=== PATIENT | female | born 1955 | race Caucasian/White ===

== ENCOUNTER → 2016-04-21 | Outpatient (CLI) | payer OTHER ==
[~2016-04-21] MED LIST: GADOBUTROL 10 ML VIAL IVP ONE
--- NOTE | 2016-04-21 23:31 | MR ---
MRI of the Abdomen (Without and With Contrast) History: 60 year old with metastatic breast cancer. Technique: Precontrast 2D FIESTA axial, FSE T2 breathhold axial and coronal, kt-wve-gfr-of-phase axi al imaging, and T1 LAVA fat-suppressed imaging. Pre- and multiphase postcontrast axial T1 fat-suppre ssed images after the uneventful injection of 7 mL Gadavist. Comparison: CT abdomen February 04, 2016 from [facility], CT chest January 13, 2016 , PET/CT July 17, 2015 from [facility]. Findings: There are no pleural or pericardial effusions. There is no change in size of a 1.4- x 1.2-cm T2 hyperintense enhancing nodule in the anterior segmen t right hepatic lobe, with progressive enhancement on delayed series. No other liver lesions are anny ntified. The gallbladder, spleen, pancreas, adrenals, and kidneys are normal. The visualized colon and small bowel are normal caliber. The aorta is normal caliber. The IVC, hepatic, portal, splenic, and superior mesenteric veins are patent. No pathologically enlarged lymph nodes are identified. D egenerative change is present in the lumbar spine. No aggressive osseous lesions are identified. Impression: Stable indeterminate hepatic lesion since February 2016, which had previously increased in size making it suspicious for metastasis. E:jayden
== END ==
LOC: FIMAGING 09:49
PROVIDERS: ATTEND Internal Medicine Hematology & Oncology
DX: K76.9 Liver disease, unspecified (principal); Z12.89 Encounter for screening for malignant neoplasm of other sites; C50.919 Malignant neoplasm of unspecified site of unspecified female breast
CPT/HCPCS: A9585

== ENCOUNTER → 2016-11-02 | Outpatient (CLI) | payer OTHER ==
[~2016-11-02] MED LIST changes: -GADOBUTROL 10 ML VIAL IVP ONE; +IOPAMIDOL (ISOVUE 370) 100 ML BTL IV ONE
== END ==
LOC: FIMAGING 14:34
PROVIDERS: ATTEND Physician Assistant
DX: I82.611 Acute embolism and thrombosis of superficial veins of right upper extremity (principal); I26.99 Other pulmonary embolism without acute cor pulmonale; R59.0 Localized enlarged lymph nodes
CPT/HCPCS: Q9967

== ENCOUNTER → 2017-06-19 | Outpatient (CLI) | payer OTHER | LOC: FIMAGING 08:36 | PROVIDERS: ATTEND Internal Medicine Hematology & Oncology | DX: K21.9 Gastro-esophageal reflux disease without esophagitis (principal); Z85.3 Personal history of malignant neoplasm of breast ==

== ENCOUNTER → 2018-05-14 | Outpatient (CLI) | payer OTHER | LOC: FIMAGING 09:09 | PROVIDERS: ATTEND Internal Medicine Hematology & Oncology | DX: C50.112 Malignant neoplasm of central portion of left female breast (principal); M89.8X8 Other specified disorders of bone, other site | CPT/HCPCS: 78306; A9503 ==

== ENCOUNTER → 2018-06-13 | Outpatient (CLI) | payer OTHER | LOC: FIMAGING 08:16 | PROVIDERS: ATTEND Internal Medicine Hematology & Oncology | DX: M79.661 Pain in right lower leg (principal) ==

== ENCOUNTER → 2018-07-10 | Outpatient (CLI) | payer OTHER | LOC: FIMAGING 11:51 | PROVIDERS: ATTEND Nurse Practitioner | DX: R14.0 Abdominal distension (gaseous) (principal); R11.2 Nausea with vomiting, unspecified; Z85.3 Personal history of malignant neoplasm of breast ==

== ENCOUNTER → 2018-07-16 | Outpatient (CLI) | payer OTHER ==
[~2018-07-16] MED LIST changes: +GADOBUTROL 10 ML VIAL IVP ONE; -IOPAMIDOL (ISOVUE 370) 100 ML BTL IV ONE
== END ==
LOC: FIMAGING 08:11
PROVIDERS: ATTEND Internal Medicine Hematology & Oncology
DX: C79.51 Secondary malignant neoplasm of bone (principal); C50.919 Malignant neoplasm of unspecified site of unspecified female breast; K59.00 Constipation, unspecified
CPT/HCPCS: A9585

== ENCOUNTER 2018-07-26 05:28 | Inpatient (IN) | payer OTHER ==
[2018-07-26] MEDS ORDERED: LIDOCAINE 1% 2 ML INJ ID PRN (06:07)
[2018-07-26] MEDS ORDERED: LR 1,000 ML IV ONE (06:07)
[2018-07-26] MEDS ORDERED: BACITRACIN 50,000 UNITS/10 ML SYR IRR ONE (06:07)
[2018-07-26] MEDS ORDERED: BUPIVACAINE/EPI 0.25% 30 ML SDV ONE (06:07)
[2018-07-26] MEDS ORDERED: CHLORHEXIDINE GLUC HIBICLENS 118 ML BTL TP ONE (06:08)
[2018-07-26] MEDS ORDERED: THROMBIN (BOVINE) 5,000 UNIT VIAL TP ONE (06:08)
[2018-07-26 06:35] LABS: PLATELET COUNT 182 10^3/uL (150-400)
[2018-07-26] MEDS ORDERED: ceFAZolin 2 GM/DEXTROSE 100 ML IV ONE (06:46)
[2018-07-26] MEDS ORDERED: GABAPENTIN 300 MG CAP PO ONE (06:46)
[2018-07-26] MEDS ORDERED: ACETAMINOPHEN 500 MG TAB PO ONE (06:46)
[2018-07-26] MEDS ORDERED: morphINE SR 15 MG TAB PO ONE (06:46)
--- NOTE | 2018-07-26 06:50 | PDHPUP ---
History & Physical Update H&P update statement: This history and physical update is based on an assessment of the patient which was completed after admission or registration (within 24 hours), but prior to the surgery/procedure. H&P update: H&P reviewed & patient examined, no change in patient's condition since H&P completed
[2018-07-26] MEDS ORDERED: MIDAZOLAM 2 MG/2 ML VIAL IVP ONE (06:54)
--- NOTE | 2018-07-26 06:54 | PDANEPAE ---
ANE History of Present Illness CA mets to spine, for stabilization ANE Past Medical History - Cardiovascular History Hx Hypertension: No Hx Arrhythmias: No Hx Chest Pain: No Hx Coronary Artery / Peripheral Vascular Disease: No Hx CHF / Valvular Disease: No Hx Palpitations: No Cardiovascular History Comment: hx of DVT last one 12/2017 - Pulmonary History Hx COPD: No Hx Asthma/Reactive Airway Disease: Yes Hx Recent Upper Respiratory Infection: No Hx Oxygen in Use at Home: No Hx Sleep Apnea: No Sleep Apnea Screening Result - Last Documented: Negative Pulmonary History Comment: hx of asthma- no issues currently. current right lung ca mets - Neurologic History Hx Cerebrovascular Accident: No Hx Seizures: No Hx Dementia: No Neurologic History Comment: occ numbness and tingling to right leg if she moves a certain way - Endocrine History Hx Diabetes: No - Renal History Hx Renal Disorders: No - Liver History Hx Hepatic Disorders: Yes Hepatic History Comment: current liver mets - Neurological & Psychiatric Hx Hx Neurological and Psychiatric Disorders: No - Cancer History Hx Cancer: Yes Cancer History Comment: hx of left BREAST CA 08/2011 with mets to liver, and right lung- oral chemo daily. chemo with breast and bilateral mastectomy - Congenital Disorder History Hx Congenital Disorders: No - GI History Hx Gastrointestinal Disorders: Yes Gastrointestinal History Comment: gerd - Other Health History Other Health History: wears glasses - Chronic Pain History Chronic Pain: No - Surgical History Prior Surgeries: 12/2017 thromobsis removal. 01/30/15 excision of neuroma with Celine. 10/16/12 right knee resurfacing with Fito. 08/19/11 bilateral mastectomy, port placed and reconstruction with Joe. 08/05/11 left breast bx with Sandra. 77 VARICOSE VEINS L LEG. HYSTERECTOMY 1982. BLADDER SLING 1989. REMOVAL PORT. REVISION R BREAST 2012. REVISION R BREAST X 2013 ANE Review of Systems Review of Systems: - Exercise capacity METS (RN): 4 METS ANE Patient History - Allergies Allergies/Adverse Reactions: Sulfa (Sulfonamide Antibiotics) Allergy (Verified 07/25/18 09:19) HIVES, SWELLING - Home Medications Home Medications: Letrozole [Femara 2.5 mg (*)] 2.5 mg PO DAILY 12/05/17 [Last Taken 07/26/18] Pantoprazole Sodium [Protonix 40mg (*)] 40 mg PO DAILY 12/05/17 [Last Taken ] Dexamethasone [Decadron 4 MG (*)] 4 mg PO BID 07/25/18 [Last Taken 07/26/18] Rivaroxaban [Xarelto 10mg (*)] 20 mg PO DAILY 07/25/18 [Last Taken 07/22/18] Ascorbic Acid [Vitamin C 500 mg (*)] 500 mg PO DAILY 07/26/18 [Last Taken Unknown] Calcium Carbonate [Oyster Shell Calcium 500 mg (*)] 500 mg PO DAILY 07/26/18 [ Last Taken Unknown] Cholecalciferol Vit D3 [Vitamin D3 (*)] 1,000 units PO DAILY 07/26/18 [Last Taken Unknown] Multivitamins [Multivitamin (*)] 1 each PO DAILY 07/26/18 [Last Taken Unknown] Aurora-3 Fatty Acids [Fish Oil 1000 mg (*)] 1,000 mg PO DAILY 07/26/18 [Last Taken Unknown] - NPO status NPO Since - Liquids (Date): 07/26/18 NPO Since - Liquids (Time): 04:00 NPO Since - Solids (Date): 07/25/18 NPO Since - Solids (Time): 18:00 - Anes Hx Anes Hx: no prior problems - Smoking Hx Smoking Status: Never smoked - Family Anes Hx Family Hx Anesthesia Complications: YOUNGEST BROTHER CARDIAC ARREST AND REVIVED ANE Labs/Vital Signs - Labs Result Diagrams: 07/26/18 06:24 - Vital Signs Blood Pressure: 130/76 Heart Rate: 70 Respiratory Rate: 17 O2 Sat (%): 94 Height: 160.02 cm Weight: 80.286 kg ANE Physical Exam - Airway Mallampati Score: Class 2 Mouth exam: normal dental/mouth exam - Pulmonary Pulmonary: no respiratory distress - Cardiovascular Cardiovascular: regular rate and rhythym - ASA Status ASA Status: III ANE Anesthesia Plan Anesthesia Plan: general endotracheal anesthesia
[2018-07-26] MEDS ORDERED: MIDAZOLAM 2 MG/2 ML VIAL ONE (07:03)
[2018-07-26] MEDS ORDERED: SCOPOLAMINE HYDROBROMIDE 1 MG/3 DAYS PATCH TD ONE (07:03)
[2018-07-26] MEDS ORDERED: ROCURONIUM 50 MG/5 ML VIAL ONE (07:08)
[2018-07-26] MEDS ORDERED: LIDOCAINE 2% 5 ML SDV ONE (07:08)
[2018-07-26] MEDS ORDERED: REMIFENTANIL HCL 1 MG VIAL ONE ×2 (07:09→09:26)
[2018-07-26] MEDS ORDERED: PROPOFOL 200 MG/20 ML VIAL ONE (07:10)
[2018-07-26] MEDS ORDERED: fentaNYL 100 MCG/2 ML INJ ONE ×3 (07:10→11:31)
[2018-07-26] MEDS ORDERED: PROPOFOL/EMULSION 500 MG/50 ML BOTTLE IV ONE ×2 (07:10→09:26)
[2018-07-26] MEDS: SCOPOLAMINE HYDROBROMIDE 1 MG/3 DAYS PATCH TD SCH (07:19)
[2018-07-26] MEDS ORDERED: PROMETHAZINE HCL 25 MG/ML INJ IVP PRN (10:15)
[2018-07-26] MEDS ORDERED: NALOXONE HCL 0.4 MG/ML INJ IVP PRN (10:15)
[2018-07-26] MEDS ORDERED: ONDANSETRON 4 MG/2 ML VIAL IVP PRN ×2 (10:15→10:43)
[2018-07-26] MEDS ORDERED: LACTULOSE 20 GM/30 ML UDCUP PO PRN (10:43)
[2018-07-26] MEDS ORDERED: MAGNESIUM HYDROXIDE 30 ML UDCUP PO PRN (10:43)
[2018-07-26] MEDS ORDERED: ONDANSETRON DISINTEGRATING 4 MG TAB PO PRN (10:43)
[2018-07-26] MEDS ORDERED: BISACODYL 10 MG SUPP PR PRN (10:43)
[2018-07-26] MEDS ORDERED: diphenhydrAMINE 25 MG CAP PO PRN (10:43)
[2018-07-26] MEDS ORDERED: HYDROmorphONE/DILAUDID 1 MG/ML INJ IVP PRN (10:43)
[2018-07-26] MEDS ORDERED: NS 1,000 ML IV SCH (10:45)
--- NOTE | 2018-07-26 10:55 | POSTOPPROG ---
Post Op Note Date of Operation: 07/26/18 Surgeon: Sridhar Do Telephone Maintenance Mechanic: Regi Diggs Anesthesia: GET(General Endotracheal) Pre-op Diagnosis: T8 Spinal Tumor Post-op Diagnosis: same Procedure: T6-T10 PSF, T8-9 laminectomy for removal of T8 spinal tumor Inf/Abcess present in the surg proc area at time of surgery?: No Depth: Organ Space EBL: 100 Complications: none observed Drains: Antwan De La Vega (To full suction) SOAP Progress Note Assessment/Plan: Assessment: Plan: 07/26/18 10:51 S: Patient in PACU. Stable and still waking up from surgery. O: NAD, VSS Somnolent PERRL GARCIA x4 SILT Incision c/d/i-dressed JUSTINO X1 - to full suction A:62 yo female with known history of breast cancer sp T6-T10 PSF, T8-9 laminectomy for removal of T8 spinal tumor P: -Admit to ed/surg -Optimize pain management -Was on steroids prior to surgery for symptoms but these will need to be weaned off over the next 7 days -JUSTINO X 1 to full suction -Postop MRI and xrays tomorrow -No brace -May shower on POD #2 -Lovenox to start tomorrow, was on Xeralto in the past, may restart this in 5 days -PT.OT -Please call with any changes in neuro exam Objective: Vital Signs Temp Pulse Resp BP Pulse Ox 36.7 C 70 17 130/76 H 94 07/26/18 06:13 07/26/18 08:23 07/26/18 08:23 07/26/18 08:23 07/26/18 08:23 Laboratory Results 07/26/18 06:24
--- NOTE | 2018-07-26 10:57 | POSTANESTH ---
Post Anesthetic Evaluation Cardiovascular Status: Similar to Pre-Op Cond Respiratory Status: Similar to Pre-op Cond. Level of Consciousness/Mental Status: Alert and Oriented Pain Control: Adequate, Prn Tx Ordered Nausea/Vomiting Control: Adequate, Prn Tx Ordered Complications Possibly Related to Anesthesia: None Noted
[2018-07-26] MEDS: fentaNYL 100 MCG/2 ML INJ IVP PRN ×2 (11:33→11:41)
--- NOTE | 2018-07-26 11:33 | PDMN ---
Medical Necessity Medical necessity: Pt meets npt criteria per MD order and Neurosurgery GRG, Laminectomy for excision or evacuation of intraspinal lesion, MCR IP only list, 5 days. op: T6-10 PSF, T8-9 laminectomy for removal of T8 spinal tumor. 62 y/o w/hx breast ca, underwent bilat mastectomy and chemo tx since then, developed R flank and under R breast pain as well as some midline back pain, CT and MRI show T8 mass, admitted now for above surg and post-op care.
[2018-07-26] MEDS ORDERED: HYDROmorphONE/DILAUDID 1 MG/ML INJ ONE (11:53)
[2018-07-26] MEDS: HYDROmorphONE/DILAUDID 1 MG/ML INJ IVP PRN ×3 (11:54→12:34)
[2018-07-26] MEDS: ACETAMINOPHEN 500 MG TAB PO SCH ×2 (13:03→21:44)
[2018-07-26] MEDS: METHOCARBAMOL 750 MG TAB PO PRN ×2 (13:03→17:59)
[2018-07-26] MEDS: oxyCODONE IR 5 MG TAB PO PRN ×3 (13:04→21:45)
[2018-07-26] MEDS: ceFAZolin 2 GM/DEXTROSE 100 ML IV SCH ×2 (15:06→21:44)
--- NOTE | 2018-07-26 19:21 | GOP ---
[f rep st] OPERATIVE REPORT DATE OF OPERATION: 07/26/2018 SURGEON: Sridhar Do MD LIFE SKILLS TRAINER[facility] ANESTHESIA: General endotracheal. PREOPERATIVE DIAGNOSIS: Metastatic breast cancer. POSTOPERATIVE DIAGNOSIS: Metastatic breast cancer. PROCEDURE PERFORMED: 1. T8, T9 laminectomies with bilateral transpedicular approaches for resection of extradural tumor i n the posterior elements of the T8 vertebral body. 2. Placement of pedicle screw fixation at T6, T7, T9, T10. 3. Posterolateral spinal fusion T6 to T10. 4. Use of the intraoperative microscope. 5. Use of allograft cancellous bone chips. 6. Stealth/O-arm navigation for screw placement. 7. Intraoperative neurophysiologic monitoring. 8. Somatosensory evoked potentials, motor evoked potentials, and EMG. FINDINGS: Successful tumor resection and spinal fusion. SPECIMENS: T8 extradural tumor. ESTIMATED BLOOD LOSS: 100 cc. INDICATIONS: The patient is a 62-year-old woman who has had a history of bilateral mastectomies for breast cancer. She presented to her oncologist with some nonspecific chest pain about a week and a prater lf ago, and a CT scan revealed extradural mass in the posterior elements of the T8 vertebral body ext ending into the pedicles. There was significant canal compromise, which was confirmed by MRI. She did not have any signs of myelopathy at the time, but after meeting with her oncologist, Dr. Bush, it w as decided that surgical resection of this tumor would likely be of better benefit than radiotherapy as a primary treatment. She presents electively today for the surgery. DESCRIPTION OF PROCEDURE: After informed consent was obtained from the patient, the patient was brou ght to the operating room, and a formal time-out was performed, identifying the patient by name, [facility], and date of . Preoperative antibiotics were given. Endotracheal tube was plac ed and general endotracheal anesthesia was smoothly induced. All appropriate leads were placed for in traoperative neurophysiologic monitoring and baseline potentials were obtained. The patient was turne d into the prone position on the Antwan table. All appropriate pressure points were padded and check ed. Next, using lateral fluoroscopic x-rays, we were able to count up from the L5 vertebral body, localiz ing the level of the incision from T6 to T10. Midline skin incision was marked and the thoracic regio n was prepped and draped in normal sterile fashion. The skin incision was made using a 10 blade and t he subcutaneous tissues were dissected using monopolar electrocautery. The fascia was opened in the m idline and the paraspinous muscles were taken down from the spinous process, lamina, and transverse p rocesses of T6 through T10. The tumor was well visualized at T8, confirming our localization. Once we had this exposure, the stereotactic frame was placed on the spinous process of T9 and an O-ar m spin was obtained showing the relevant anatomy of T6 through T10. This was then used to localize th e pedicle entry points at T6, T7, T9, and T10. Each pedicle entry point was decorticated using the [employer] gh-speed drill, and then using a 4 mm [employer] tap, each pedicle was tapped using navigation. Medtro forrest Solera screws were then placed at each level. At T6, 5.5 x 40 mm screws were placed bilaterally. At T7, a 5.5 x 45 mm screw was placed on the left and a 5.5 x 40 mm screw was placed on the right. At T9 and T10, 5.5 x 45 mm screws were placed bilaterally. At this point, all the screws in good placem ent and the neurophysiologic monitoring remaining stable, the operative microscope was brought on the field remainder of the procedure was performed under high-power magnification. First, the spinous process of T8 and T9 were removed completely and the high-speed drill was used to drill down into the lamina of T7 above the T8 pedicle. The inferior articulating process of T7 was re moved and the superior articular processes of T8 were also removed exposing the foramen. The inferior articular process of T8 was also removed and superior articular process of T9 was removed exposing t he foramina T8-9. This allowed us to visualize the pedicles and the large amount of extradural tumor, which was in the canal at this level. Once the lamina of T8 was completely removed, the tumor was th en resected and sent for permanent pathology. We were able to follow this out bilaterally to the luis fernando womack. The right-sided T8 pedicle was completely engulfed in tumor and this was all dissected extracap sularly and removed with the transverse process. Where the tumor extended toward the vertebral body, high-speed drill was used to drill into the vertebral body through the pedicle and therefore obtained gross total removal. On the left side, the transpedicular approach was also used to drill into the v ertebral body and removing all the tumor on this side. The T7 and T8 nerve roots were visualized and these were also clear of tumor completely decompressed. At this point, all bleeding was controlled using bipolar electrocautery and Gelfoam. A second O-arm s pin was obtained showing all the screws in good placement. The screw heads were then sized for a 110 mm x 4.75 mm [employer] titanium rods, which were locked into the screw heads using the locking caps. These were tightened to the final torque recommended by the manufacture. We then used some MagniFuse cancellous bone graft and the spinous processes, lamina and transverse processes were decorticated fo r posterolateral fusion. This bone graft was laid down into these gutters. At this point, the wound was copiously irrigated using bacitracin irrigation. All of the final motor evoked potentials and somatosensory evoked potentials remained stable. A 10-Vietnamese JUSTINO drain was place d in the subfascial space. The fascia was closed in the midline using interrupted 0 Vicryl. The super ficial fascia was closed using interrupted 0 Vicryl. The deep dermis was closed using interrupted 2-0 Vicryl and the skin was closed using Steri-Strips. The drain was connected to a sterile drainage sys tem. Sterile dressings were placed. The patient was awakened in the operating room, and she was extub ated and transferred to the PACU in stable condition, and at her neurologic baseline. FLUIDS/URINE OUTPUT: Per the Anesthesia record. DRAIN: Subfascial JUSTINO. /[id number]/MODL
[2018-07-26] MEDS: DEXAMETHASONE 4 MG TAB PO SCH (21:44)
[2018-07-26] MEDS: SENNOSIDES/DOCUSATE SODIUM TAB PO SCH (21:45)
[2018-07-27] MEDS: METHOCARBAMOL 750 MG TAB PO PRN ×3 (00:09→14:30)
[2018-07-27] MEDS: ACETAMINOPHEN 500 MG TAB PO SCH ×3 (05:39→22:20)
[2018-07-27] MEDS: oxyCODONE IR 5 MG TAB PO PRN ×4 (05:40→18:28)
[2018-07-27] MEDS: ENOXAPARIN 40 MG/0.4 ML SYR SC SCH (08:33)
[2018-07-27] MEDS: LETROZOLE 2.5 MG TAB PO SCH (08:33)
[2018-07-27] MEDS: POLYETHYLENE GLYCOL 3350 17 GM PKT PO PRN (08:34)
[2018-07-27] MEDS: CHOLECALCIFEROL VIT D3 1,000 UNITS TAB PO SCH (08:34)
[2018-07-27] MEDS: ASCORBIC ACID 500 MG TAB PO SCH (08:34)
--- NOTE | 2018-07-27 08:34 | NEUSURGPN ---
Date of Surgery: 07/26/18 Post Op Day: 1 Assessment/Plan: 62 yo female s/p T8/9 laminectomy for removal of bony tumor with T6-T10 fusion POD#1 - neuro stable - decadron taper over 1 week - pain control - no brace - postop x-rays and MRI T-spine pending - path pending - continue JUSTINO drain - PT/OT - please contact neurosurgery with any changes in neuro status/exam Discussed with Dr. Do Subjective: Having localized surgical pain. No LE symptoms. Objective: Awake. Alert. PERRL. EOMI Facial expression symmetrical Muscle strength full at 5/5 Sensation intact - Physician Discussed Patient with : Hi Neurosurgery Physical Exam - Vitals, I&O, Labs I and O 07/26/18 07/27/18 07/28/18 05:59 05:59 05:59 Intake Total 3006 Output Total 1810 200 Balance 1196 -200 Weight 80.286 kg 80.286 kg Intake: Oral (ml) 350 IV Intake (ml) 2000 IV Infused (ml) 656 Ns 1,000 ml @ 100 mls/hr 456 IV CONT ALBARO Rx#: [id number] ceFAZolin 2 GM/DEXTROSE 200 100 ml @ 200 mls/hr IV Q8HRS ALBARO Rx#:[id number] Output: Urine (ml) 1425 200 Catheter 975 Toilet 450 200 Estimated Blood Loss (ml) 100 JUSTINO Drain Output (ml) 285 Back Antwan De La Vega 285 Other: Number of Voids Toilet 1 1 Post Void Residual Scan Volume (ml) Toilet 756 Vital Signs Temp Pulse Resp BP Pulse Ox 36.7 C 52 L 16 103/53 L 94 07/27/18 07:19 07/27/18 07:19 07/27/18 07:19 07/27/18 07:19 07/27/18 07:19 Laboratory Results 07/27/18 04:45 ICD10 Worksheet Patient Problems: Problems Problem Status Onset Postoperative infection Active Carcinoma of breast Acute DVT (deep venous thrombosis) Acute
[2018-07-27] MEDS: MULTIVITAMINS 1 EACH TAB PO SCH (08:35)
[2018-07-27] MEDS: DEXAMETHASONE 4 MG TAB PO SCH ×3 (08:35→20:16)
[2018-07-27] MEDS: PANTOPRAZOLE SODIUM 40 MG TAB PO SCH (08:35)
[2018-07-27] MEDS: SENNOSIDES/DOCUSATE SODIUM TAB PO SCH ×2 (08:35→20:16)
[2018-07-27] MEDS: CALCIUM CARBONATE 500 MG TAB PO SCH (08:35)
[2018-07-27] MEDS ORDERED: *MD ORDERING ONLY-DEXAMETHASONE TAPER PO SCH (08:45)
[2018-07-27] MEDS ORDERED: IOPAMIDOL (ISOVUE-300) 100 ML BTL ONE (09:51)
--- NOTE | 2018-07-27 16:34 | ASMTCMCOM ---
CM Note CM Note Notes: Pt with breast CA had planned lami for removal of T8 spinal tumor. OT has not been able to eval today, PT rec home. CM to follow pt progress. D/c plan: likely independent, will see OT rec Date Signed: 07/27/2018 04:34 PM Electronically Signed By:VAUGHN Dumas
[2018-07-28] MEDS: oxyCODONE IR 5 MG TAB PO PRN ×4 (03:33→20:14)
[2018-07-28] MEDS: ACETAMINOPHEN 500 MG TAB PO SCH ×3 (05:39→22:21)
--- NOTE | 2018-07-28 07:58 | SOAPPROG ---
SOAP Progress Note Assessment/Plan: Assessment: 62 yo F POD $2 T6-10 posterior fusion with resection of T8 lesion Plan: neuro: stable and doing well overall post op CT/x-rays look good MRI thoracic spine pending PT/OT scd/kodi/lovenox for dvt prophylaxis JUSTINO x 1, maybe remove tomorrow please call with neuro changes discussed with Dr oD 07/28/18 07:56 Subjective: + back pain, worse with movement, no rib pain, no leg pain/weakness. Objective: Vital Signs Temp Pulse Resp BP Pulse Ox 36.8 C 64 18 119/67 92 07/28/18 03:32 07/28/18 03:32 07/28/18 03:32 07/28/18 03:32 07/28/18 03:32 Laboratory Results 07/27/18 04:45 07/27/18 09:25 07/27/18 07/28/18 07/29/18 05:59 05:59 05:59 Intake Total 3006 500 Output Total 1810 685 260 Balance 1196 -185 -260 AAOX4, +FC PERRL, EOMI, no facial droop 5/5 + light touch C/D/I ICD10 Worksheet Patient Problems: Problems Problem Status Onset Postoperative infection Active Carcinoma of breast Acute DVT (deep venous thrombosis) Acute
[2018-07-28] MEDS: ENOXAPARIN 40 MG/0.4 ML SYR SC SCH (08:32)
[2018-07-28] MEDS: CHOLECALCIFEROL VIT D3 1,000 UNITS TAB PO SCH (08:32)
[2018-07-28] MEDS: SENNOSIDES/DOCUSATE SODIUM TAB PO SCH ×2 (08:32→20:14)
[2018-07-28] MEDS: CALCIUM CARBONATE 500 MG TAB PO SCH (08:32)
[2018-07-28] MEDS: LETROZOLE 2.5 MG TAB PO SCH (08:32)
[2018-07-28] MEDS: PANTOPRAZOLE SODIUM 40 MG TAB PO SCH (08:32)
[2018-07-28] MEDS: ASCORBIC ACID 500 MG TAB PO SCH (08:32)
[2018-07-28] MEDS: MULTIVITAMINS 1 EACH TAB PO SCH (08:32)
[2018-07-28] MEDS: DEXAMETHASONE 4 MG TAB PO SCH ×2 (08:32→20:14)
[2018-07-28] MEDS: METHOCARBAMOL 750 MG TAB PO PRN (09:18)
[2018-07-28] MEDS ORDERED: GADOBUTROL 10 ML VIAL IVP ONE (09:39)
[2018-07-29] MEDS: ACETAMINOPHEN 500 MG TAB PO SCH (05:41)
[2018-07-29] MEDS: SCOPOLAMINE HYDROBROMIDE 1 MG/3 DAYS PATCH TD SCH (05:41)
[2018-07-29] MEDS ORDERED: PATCH REMOVAL 1 EA PATCH TD SCH (06:58)
--- NOTE | 2018-07-29 07:52 | SOAPPROG ---
SOAP Progress Note Assessment/Plan: Assessment: 62 yo F POD #3 T6-10 posterior fusion with resection of T8 lesion Plan: neuro: stable and doing well overall post op CT/x-rays look good MRI thoracic spine with good resection of tumor PT/OT scd/kodi/lovenox for dvt prophylaxis JUSTINO removed dc home today please call with neuro changes discussed with Dr Do 07/28/18 07:56 07/29/18 07:50 Subjective: back pain improving, no leg pain, no weakness. Objective: Vital Signs Temp Pulse Resp BP Pulse Ox 36.6 C 71 16 126/75 H 95 07/29/18 04:00 07/29/18 04:00 07/29/18 04:00 07/29/18 04:00 07/29/18 04:00 Laboratory Results 07/27/18 04:45 07/27/18 09:25 07/28/18 07/29/18 07/30/18 05:59 05:59 05:59 Intake Total 500 1300 Output Total 685 1810 Balance -185 -510 AAOx4, +FC PERRL, EOMI, no facial droop 5/5 + light touch C/D/I ICD10 Worksheet Patient Problems: Problems Problem Status Onset Postoperative infection Active Carcinoma of breast Acute DVT (deep venous thrombosis) Acute
[2018-07-29] MEDS: CALCIUM CARBONATE 500 MG TAB PO SCH (08:58)
[2018-07-29] MEDS: ASCORBIC ACID 500 MG TAB PO SCH (08:58)
[2018-07-29] MEDS: CHOLECALCIFEROL VIT D3 1,000 UNITS TAB PO SCH (08:58)
[2018-07-29] MEDS: PANTOPRAZOLE SODIUM 40 MG TAB PO SCH (08:59)
[2018-07-29] MEDS: LETROZOLE 2.5 MG TAB PO SCH (08:59)
[2018-07-29] MEDS: MULTIVITAMINS 1 EACH TAB PO SCH (08:59)
[2018-07-29] MEDS: ENOXAPARIN 40 MG/0.4 ML SYR SC SCH (08:59)
[2018-07-29] MEDS: SENNOSIDES/DOCUSATE SODIUM TAB PO SCH (09:00)
[2018-07-29] MEDS ORDERED: DEXAMETHASONE 2 MG TAB PO SCH (09:00)
[2018-07-29] MEDS: POLYETHYLENE GLYCOL 3350 17 GM PKT PO PRN (10:21)
[2018-07-29 11:15] VITALS: BP 117/75
[2018-07-29] MEDS: METHOCARBAMOL 750 MG TAB PO PRN (12:49)
[2018-07-31] MEDS ORDERED: DEXAMETHASONE 2 MG TAB PO SCH (09:00)
[2018-08-02] MEDS ORDERED: DEXAMETHASONE 2 MG TAB PO SCH (09:00)
== END 2018-07-29 13:47 | disposition home or self-care (01) | DRG 30 ==
LOC: F3N 05:28
PROVIDERS: ADMIT Neurological Surgery; ATTEND Neurological Surgery
PROC: 01N80ZZ Release Thoracic Nerve, Open Approach (ICD-10-PCS; principal; 2018-07-26 07:15)
PROC: 0RG70AJ Fusion of 2 to 7 Thoracic Vertebral Joints with Interbody Fusion Device, Posterior Approach, Anterior Column, Open Approach (ICD-10-PCS; principal; 2018-07-26 07:15)
PROC: 0PB40ZZ Excision of Thoracic Vertebra, Open Approach (ICD-10-PCS; principal; 2018-07-26 07:15)
PROC: 00BX0ZZ Excision of Thoracic Spinal Cord, Open Approach (ICD-10-PCS; principal; 2018-07-26 07:15)
DX: C79.49 Secondary malignant neoplasm of other parts of nervous system (principal); Z85.3 Personal history of malignant neoplasm of breast
CPT/HCPCS: 97116-GP; 97161-GP; 97165-GO; 97535-GO; A9585; C1713; C1762; J0690; J1170; J1650; J2250; J2704; J3010; Q9967

== ENCOUNTER → 2018-09-11 | Outpatient (CLI) | payer OTHER | LOC: FIMAGING 16:23 ==

== ENCOUNTER 2018-09-24 18:06 | Inpatient (IN) | payer OTHER | END 2018-09-25 17:23 | disposition home or self-care (01) | LOC: F1N 21:20 ==